=== PATIENT | male | born 1970 | race Caucasian/White ===

== ENCOUNTER → 2018-12-09 13:51 | Outpatient (CLI) | payer OTHER, SELFPAY ==
--- NOTE | 2018-12-09 | DI.RAD.S_ITS ---
PROCEDURE: XR LUMBAR SPINE 2-3V INDICATIONS: Pain in left leg TECHNIQUE: 3 views of the lumbar spine were acquired. COMPARISON: None. FINDINGS: Bones: 5 [id number] vertebrae are present. There is normal bony alignment. No acute vertebral body compression fractures. Multilevel lumbar spondylosis most pronounced at the thoracolumbar junction and at L5-S1. No suspicious bony lesions. Soft tissues: Overlying bowel gas pattern is normal. No suspicious soft tissue calcifications. IMPRESSION: Multilevel lumbar spondylosis most pronounced at the thoracolumbar junction and at L5-S1. Dictated by: Edgar Leary M.D. on 12/09/2018 at 15:23 Approved by: Edgar Leary M.D. on 12/09/2018 at 15:24
== END ==
PROVIDERS: Visit Provider Orthopaedic Surgery
DX: M79.605 Pain in left leg (principal); M54.9 Dorsalgia, unspecified; M47.817 Spondylosis without myelopathy or radiculopathy, lumbosacral region; M47.815 Spondylosis without myelopathy or radiculopathy, thoracolumbar region
CPT/HCPCS: 72100